=== PATIENT | female | born 1960 | race Two or more races ===

== ENCOUNTER 2018-10-10 14:10 | Inpatient (IN) | payer MEDICARE, MEDICAID ==
[~2018-10-10] VITALS: Ht 167.6 cm; Wt 120.7 kg
[~2018-10-10 14:10] MED LIST: [UNRECOGNIZED DRUG - OTHER] SQ SCH
--- NOTE | 2018-10-10 14:16 | NUR ---
PT [facility], C/O +N/V x 3 DAYS, PT IS AWAKE AND ALERT, ON MECH VENT VIA TRACH, HOOKED TO MONITOR, KEPT RESTED AND COMFORTABLE, WILL CONTINUE TO MONITOR.
--- NOTE | 2018-10-10 14:41 | NUR ---
AWAITING ER MD FOR EVAL.
[2018-10-10] MEDS ORDERED: TYL2T GT (14:54)
[2018-10-10] MEDS ORDERED: PROT946L GT (14:54)
[2018-10-10] MEDS ORDERED: NA P133E RC (14:54)
[2018-10-10] MEDS ORDERED: MAGN400O6 GT (14:54)
[2018-10-10] MEDS ORDERED: MECL12.582 GT (14:54)
[2018-10-10] MEDS ORDERED: PANT40TA4 GT (14:54)
[2018-10-10] MEDS ORDERED: LEVA0.6320 NEB (14:54)
[2018-10-10] MEDS ORDERED: LACT1CAP61 PO (14:54)
[2018-10-10] MEDS ORDERED: INSU100V10 SQ (14:54)
[2018-10-10] MEDS ORDERED: METO-295 PO (14:54)
[2018-10-10] MEDS ORDERED: ASCO500C18 GT (14:54)
[2018-10-10] MEDS ORDERED: DARB60DI SQ (14:54)
[2018-10-10] MEDS ORDERED: ATOR40TA GT (14:54)
[2018-10-10] MEDS ORDERED: ASPI-605 GT (14:54)
[2018-10-10] MEDS ORDERED: MIDO10TA GT (14:54)
[2018-10-10] MEDS ORDERED: FOLI0.8T23 PO (14:54)
[2018-10-10] MEDS ORDERED: HYDR-3972 GT (14:54)
[2018-10-10] MEDS ORDERED: INSU100C4 SQ (14:54)
[2018-10-10] MEDS ORDERED: ONDA4TAB5 GT (14:54)
[2018-10-10] MEDS ORDERED: ONDANSETRON HCL/PF 4 MG/2 ML VIAL IVP ONE (15:00)
[2018-10-10] MEDS ORDERED: IV NS 0.9% 1,000 ML BAG IV ONE (15:00)
[2018-10-10] MEDS ORDERED: HYDROMORPHONE INJ 2 MG/ML DISP.SYRIN IV ONE (15:00)
[2018-10-10] MEDS ORDERED: ONDANSETRON HCL/PF 4 MG/2 ML VIAL ONE (15:06)
[2018-10-10] MEDS ORDERED: HYDROMORPHONE 1 MG/1 ML DISP.SYRIN ONE (15:07)
--- NOTE | 2018-10-10 15:16 | NUR ---
ALMOND PASTE MIXER AT BEDSIDE FOR XRAY.
[2018-10-10 15:40] LABS: CALCIUM, SERUM 9.3 mg/dL (8.5-10.1); CARBON DIOXIDE 26 mmol/L (21-32); CHLORIDE 92 mmol/L (98-107); CREATININE 3.7 mg/dL (0.6-1.3); GLUCOSE 239 mg/dL (74-106); SODIUM SERUM 127 mmol/L (136-145); UREA NITROGEN, BLOOD 51 mg/dL (7-18)
[2018-10-10 15:43] LABS: BASOPHILS # (AUTO) 0.2 /CMM (0.0-0.2); BASOPHILS % (AUTO) 1.2 % (0.0-2.0); EOSINOPHILS % (AUTO) 2.3 % (0.0-6.0); HEMATOCRIT 29 % (33-45); HEMOGLOBIN 9.7 g/dL (11.5-14.8); LYMPHOCYTES # (AUTO) 2.3 /CMM (0.8-4.8); MEAN CORPUSCULAR HGB CONC 33 g/dl (31.0-36.0); MEAN CORPUSCULAR VOLUME 87 fL (82-100); MONOCYTES # (AUTO) 0.7 /CMM (0.1-1.30); MONOCYTES % (AUTO) 5.7 % (2.0-12.0); NEUTROPHILS # (AUTO) 9.2 /CMM (1.8-8.9); NEUTROPHILS % (AUTO) 72.8 % (43.0-81.0); PLATELET COUNT (AUTO) 401 /CMM (150-450); RED BLOOD CELL COUNT(AUTO) 3.38 MIL/uL (4.0-5.2); WHITE BLOOD COUNT (AUTO) 12.7 K/uL (4.3-11.0)
--- NOTE | 2018-10-10 15:44 | NUR ---
ROOM 119 TELE DX ESRD, UTI ACCEPTING [facility] Addendum: 10/10/18 at 1545 by DIONE [facility]EPTING [facility]
[2018-10-10 15:46] LABS: ALANINE AMINOTRANSFERASE 20 U/L (12-78); ALBUMIN 2.6 g/dL (3.4-5.0); ALKALINE PHOSPHATASE 213 U/L (46-116); ASPARTATE AMINOTRANSFERASE 16 U/L (15-37); BILIRUBIN,DIRECT 0.1 mg/dL (0.0-0.2); BILIRUBIN,TOTAL 0.4 mg/dL (0.2-1.0); LIPASE 89 U/L (73-393); TOTAL PROTEIN, SERUM 7.3 g/dL (6.4-8.2)
[2018-10-10] MEDS ORDERED: PIPERACILLIN /TAZOBACTAM 3.375 G in IV D5W 50 ML IV ONE (16:00)
[2018-10-10 16:01] LABS: APPEARANCE,URINE Turbid (CLEAR); BILIRUBIN,URINE SMALL (NEGATIVE); BLOOD, URINE Large Ery/uL (NEGATIVE); COLOR,URINE Brown (YELLOW); KETONES,URINE Negative (NEGATIVE); LEUKOCYTE ESTERASE ,URINE Large (NEGATIVE); NITRITE, URINE Negative (NEGATIVE); PROTEIN,URINE >=300 mg/dl (NEGATIVE); UGLUCOSE Negative (NEGATIVE); UROBILINOGEN,URINE 0.2 EU/dL (0.2)
[2018-10-10] MEDS ORDERED: PIPERACILLIN /TAZOBACTAM 3.375 G VIAL IV ONE (16:03)
[2018-10-10] MEDS ORDERED: POTASSIUM CL. PREMIX PERIPHER. 200 ML ONE (16:08)
[2018-10-10 16:25] LABS: RBC,URINE 21-50 /HPF (0-2)
[2018-10-10 16:26] LABS: BACTERIA,URINE Many /HPF (None Seen); SQUAMOUS EPITHELIAL CELL,UR Many /HPF (None Seen); WBC,URINE TOO NUMEROUS TO COUN /HPF (0-3)
--- NOTE | 2018-10-10 17:20 | NUR ---
RECEIVED TELEPHONE ORDER FROM .
[2018-10-10] MEDS: POTASSIUM CL. PREMIX PERIPHER. 50 ML IV SCH ×4 (17:26→21:00)
--- NOTE | 2018-10-10 17:50 | NUR ---
REPORT GIVEN TO JOANNE CLINTON FOR RAJAT.
[2018-10-10 18:04] VITALS: BP 159/79
--- NOTE | 2018-10-10 18:04 | NUR ---
TELE1/PSYCHOLOGICAL STRESS EVALUATOR TO TELE1 - ROOM 119#2 PT ARRIVED VIA GURNEY ACCOMPANIED BY ER NURSE AND TRANSPORT PERSONNEL. TRANSFERRED TO HOSPITAL BED. PT A/O X 3, ABLE TO MOUTH WORDS IN LITHUANIAN, UNDERSTANDS LITTLE TURKISH. PT IS TRACHED ON C-PAP RATES SET PRESCRIBED. PT ARRIVED WITH ON GOING IV INFUSION OF POTASSIUM (1 OF 4 BAGS ER ORDER). TELE BOX PLACED, SINUS RHYTHM. PT HAS PICC LINE WITH 2 PORTS, PATENT AND AN AV SHUNT ON LEFT UPPER ARM. G-TUBE INTACT, FLUSHED. PT ADMITTED FOR UTI, UNDER THE CARE OF DR. MAJOR. AWAITING FOR ADMITTING ORDERS. VITAL SIGNS TAKEN. PT ORIENTED TO HER SURROUNDINGS. CL WITHIN REACHED AND SAFETY MAINTAINED. ON GOING MONITORING.
[2018-10-10] MEDS ORDERED: MAGNESIUM HYDROXIDE 30 ML UDC GT PRN (18:30)
[2018-10-10] MEDS ORDERED: NA PHOS,M-B/NA PHOS,DI-BA 1 EA ENEMA RC PRN (18:30)
[2018-10-10] MEDS ORDERED: DEXTROSE 50%-WATER 50 ML DISP.SYRIN IV PRN (19:00)
--- NOTE | 2018-10-10 19:00 | NUR ---
TELE1/RN AM SHIFT END NOTES PT ENDORSED TO PM NURSE TO COMPLETE ADMISSION PROCESS AND TO CONTINUE CARE.
--- NOTE | 2018-10-10 19:10 | NUR ---
SENIOR APPLICATION SECURITY CONSULTANT NOTE PATIENT IN BED A/O X 2-3. PATIENT ABLE TO BE ORIENTED. PATIENT IS MARSHALLESE SPEAKING AND ABLE TO VOLCALIZE NEEDS. PATIENT CURRENTLY HAS POTASSIUM BEING REPLACED IV NO C/O DISCOMFORT.YOLANDA PICC PATENT INTACT NO S/S OF INFECTION AND INFILTRATION. PATIENT IS SR ON THE MONITOR. PATIENT C/O ABD PAIN 01/16. NORCO GIVEN PRN PER MD ORDER. HAS GTUBE IN TACT. RN WILL CONTINUE TO MONITOR AND PROVIDE CARE ORDERED.
[2018-10-10] MEDS: ALBUTEROL FS 2.5 MG/0.5 ML VIAL.NEB NEB SCH (19:23)
[2018-10-10] MEDS: MECLIZINE HCL 25 MG TABLET PO PRN (19:28)
[2018-10-10] MEDS: HYDROCODONE/APAP 5/325MG 1 EACH TABLET GT PRN (19:40)
[2018-10-10 20:00] VITALS: BP 144/74
[2018-10-10] MEDS: NEPRO 1,000 ML BOTTLE GT PRN (21:04)
[2018-10-10] MEDS: ATORVASTATIN 40 MG TABLET GT SCH (22:59)
[2018-10-10] MEDS: INSULIN GLARGINE, 100 UNIT/ML CARTRIDGE SQ SCH (23:01)
[2018-10-10] MEDS: BLOOD SUGAR DIAGNOSTIC 1 EACH STRIP IN SCH (23:03)
[2018-10-10] MEDS: METOCLOPRAMIDE HCL 10 MG TABLET PO SCH (23:04)
[2018-10-10] MEDS: INSULIN REGULAR, HUMAN 100 UNIT/ML 3 ML VIAL SQ PRN (23:27)
[2018-10-11] VITALS (7 sets, daily range): BP systolic 92–149; BP diastolic 45–78
[2018-10-11] MEDS ORDERED: INSULIN ASPART/LISPRO 100 UNIT/ML CARTRIDGE SQ PRN
--- NOTE | 2018-10-11 00:45 | NUR ---
LANDING GEAR MECHANIC NOTE PATIENT CONTINUE TO C/O OF ABDOMINAL PAIN 01/16 UNRELIEVED BY NORCO. NOTIFIED MD MYRIAM MD ORDERED DILAUDID 0.5 MG Q 6 PRN FOR PAIN/ CT OF ABDOMEN AND PELVIS W/O CONTRAST.. PATIENT PLACED ON NPO FOR PROCEDURE. DILAUDID GIVEN, PAIN REDUCED TO 2.
[2018-10-11] MEDS: HYDROMORPHONE 1 MG/1 ML DISP.SYRIN IV PRN ×4 (01:38→21:33)
[2018-10-11] MEDS: ONDANSETRON 4 MG TAB.RAPDIS GT PRN ×2 (01:41→09:33)
[2018-10-11] MEDS ORDERED: ZOSYN IVPB 3.375 G in IV D5W 50ml IV SCH (04:00)
[2018-10-11] MEDS: HYDROCODONE/APAP 5/325MG 1 EACH TABLET GT PRN ×2 (04:09→11:30)
[2018-10-11] MEDS: METOCLOPRAMIDE HCL 10 MG TABLET PO SCH ×3 (05:46→17:14)
[2018-10-11] MEDS: BLOOD SUGAR DIAGNOSTIC 1 EACH STRIP IN SCH ×3 (05:47→18:02)
[2018-10-11] MEDS: INSULIN REGULAR, HUMAN 100 UNIT/ML 3 ML VIAL SQ PRN ×2 (06:41→12:11)
[2018-10-11 06:49] LABS: BASOPHILS % (AUTO) 0.1 % (0.0-2.0); EOSINOPHILS % (AUTO) 3.7 % (0.0-6.0); HEMATOCRIT 27 % (33-45); HEMOGLOBIN 9.2 g/dL (11.5-14.8); LYMPHOCYTES # (AUTO) 1.5 /CMM (0.8-4.8); LYMPHOCYTES % (AUTO) 14.6 % (20.0-44.0); MEAN CORPUSCULAR HGB CONC 34 g/dl (31.0-36.0); MEAN CORPUSCULAR VOLUME 86 fL (82-100); MONOCYTES # (AUTO) 0.5 /CMM (0.1-1.30); MONOCYTES % (AUTO) 4.9 % (2.0-12.0); NEUTROPHILS # (AUTO) 7.8 /CMM (1.8-8.9); NEUTROPHILS % (AUTO) 76.7 % (43.0-81.0); PLATELET COUNT (AUTO) 433 /CMM (150-450); RED BLOOD CELL COUNT(AUTO) 3.18 MIL/uL (4.0-5.2); WHITE BLOOD COUNT (AUTO) 10.2 K/uL (4.3-11.0)
--- NOTE | 2018-10-11 06:56 | NUR ---
TIMBER ROBBER NOTE PATIENT TOLERATED THE NIGHT, ENDORSED POC TO AM FOR RAAJT. ALL CARE RENDERED ORDERED SAFETY PRECAUTIONS IN PLACE.
--- NOTE | 2018-10-11 07:00 | NUR ---
RN AM SHIFT NOTE PATIENT ALERT ORITNED X3. ON CPAP IV PATENT AND INTACT. NPO FOR PROCEDURE. PAIN MEDICATION GIVEN PER MD ORDER. PATIENT REFUSED OFF LOADING OF HEELS AND PATIENT REFUSED DVT PUMPS.
[2018-10-11 07:04] LABS: CALCIUM, SERUM 8.8 mg/dL (8.5-10.1); POTASSIUM 3.6 mmol/L (3.5-5.1)
[2018-10-11] MEDS: ALBUTEROL FS 2.5 MG/0.5 ML VIAL.NEB NEB SCH ×2 (07:50→20:11)
[2018-10-11] MEDS: ASPIRIN 81 MG TAB.CHEW GT SCH (08:48)
[2018-10-11] MEDS: VIT B CMPLX 3/FA/VIT C/BIOTIN 1 TAB TABLET PO SCH (08:48)
[2018-10-11] MEDS: ASCORBIC ACID 500 MG TABLET GT SCH (08:48)
[2018-10-11] MEDS: LACTOBACILLUS RHAMNOSUS GG 1 EACH CAP.SPRINK PO SCH ×2 (08:48→17:14)
[2018-10-11] MEDS: MIDODRINE HCL (5MG) 5 MG TABLET PO SCH ×3 (08:56→17:14)
[2018-10-11] MEDS ORDERED: PANTOPRAZOLE 40 MG/PACK PACK NG SCH (09:00)
[2018-10-11] MEDS: PROSOURCE / PROSTAT (PYXIS) 30 ML UDC GT SCH ×3 (09:00→17:14)
[2018-10-11] MEDS: HEPARIN SODIUM, PORCINE 5000 UNITS/1 ML VIAL SQ SCH ×2 (09:19→21:35)
[2018-10-11] MEDS ORDERED: PANTOPRAZOLE 40 MG/PACK PACK GT SCH (09:39)
[2018-10-11] MEDS ORDERED: EPOETIN ALFA (10,000 UNIT) 10,000 UNIT/ML VIAL IV ONE (12:00)
[2018-10-11] MEDS: FAMOTIDINE/PF INJ 20 MG/2 ML VIAL IV SCH ×2 (13:00→17:14)
[2018-10-11] MEDS: PIPERACILLIN /TAZOBACTAM 3.375 G in IV D5W 100 ML IV SCH (13:59)
[2018-10-11 16:12] LABS: ABG BASE EXCESS 0.4 mmol/L; ABG PCO2 48.7 mmHg (35.0-45.0); ABG PH 7.351 (7.350-7.450); ABG PO2 132.5 mmHg (75.0-100.0); AaDO2 96.7 mmHg; COHb 0.7 % (0.5-1.5); MetHb 0.4 % (0.0-1.5); O2Hb 96.9 % (94.0-97.0); SITE, ABG Right Radial; VENT MODE, BG CPAP 5 PS 14 40%
--- NOTE | 2018-10-11 16:30 | NUR ---
RN NOTE PATIENT WAS TAKEN FOR CT OF ABDOMEN TODAY. TUBE FEEDING CONTINUED AFTER PROCEDURE WAS DONE. PATIENT ALERT ORITNED, AND COMPLAINING OF ABDOMINAL PAIN. TOLERATING MEDICATION WELL. DIALYSIS ARRIVED THIS EVENING PATIENT SIGNED CONSENT FOR PROCEDURE. SIDE RAILS UP CONTINUE TO [facility].
--- NOTE | 2018-10-11 19:10 | NUR ---
AESTHETICS INSTRUCTOR NOTE PATIENT REPORT GIVEN BEDSIDE. PATIENT JUST COMPLETED DIALYSIS. 700 ML REMOVED. PATIENT BP STABLE, NO S/S OF HYPOTENSION. PATIENT DENIES PAIN AT THIS TIME. PATIENT TOLERATING CPAP SETTINGS WELL. SATURATION 100%. NO S/S OF RESPIRATORY DISTRESS. PATIENT DENIES CHEST PAIN AT THIS TIME. PATIENT SR ON THE MONITOR. POC DISCUSSED WITH PATIENT, RN WILL CONTINUE TO MONITOR FOR CHANGES. SAFETY PRECAUTIONS IN PLACE CALL LIGHT IN HAND.
[2018-10-11] MEDS: PANTOPRAZOLE 40 MG/PACK PACK GT SCH (21:33)
[2018-10-11] MEDS: ATORVASTATIN 40 MG TABLET GT SCH (21:35)
[2018-10-11] MEDS: INSULIN GLARGINE, 100 UNIT/ML CARTRIDGE SQ SCH (21:47)
[2018-10-12] VITALS: BP 131/71
[2018-10-12] MEDS: BLOOD SUGAR DIAGNOSTIC 1 EACH STRIP IN SCH ×5 (00:53→23:23)
[2018-10-12] MEDS: MIDODRINE HCL (5MG) 5 MG TABLET PO SCH ×5 (01:00→23:25)
[2018-10-12] MEDS: METOCLOPRAMIDE HCL 10 MG TABLET PO SCH ×5 (01:01→23:24)
[2018-10-12] MEDS: INSULIN REGULAR, HUMAN 100 UNIT/ML 3 ML VIAL SQ PRN ×5 (01:06→23:08)
[2018-10-12] MEDS: PIPERACILLIN /TAZOBACTAM 3.375 G in IV D5W 100 ML IV SCH (01:06)
--- NOTE | 2018-10-12 03:30 | NUR ---
COOK SPECIALTY NOTE NEW WOUNDS NOTED DURING PATIENT BATH. R HEEL REDNESS UNBLANCHABLE NOTED, PERIANAL WOUND, INGUINAL FOLD MASD NOTED. WPUND CONSULT PRESENT. EDUCATED PATIENT ABOUT IMPORTANCE OF OFFLOADING HEELS TO PREVENT FURTHER DAMAGE. PATIENT REFUSES TO HAVE ANYTHING BY HER FEET DESPITE EDUCATION. PATIENT EDUCATED ON CONSEQUENCES OF DTI AND POSSIBLE INCREASED RISKS D/T DM/ DIALYSIS. PATIENT VERBALIZES UNDERSTANDING. RN WILL CONTINUE TO ENCOURAGE OFFLOADING.
[2018-10-12 04:00] VITALS: BP 166/83
[2018-10-12] MEDS: HYDROMORPHONE 1 MG/1 ML DISP.SYRIN IV PRN ×4 (04:08→23:23)
[2018-10-12] MEDS: NEPRO 1,000 ML BOTTLE GT PRN ×2 (04:09→23:31)
--- NOTE | 2018-10-12 05:05 | NUR ---
RT NOTED PT REC'D TRACHED ON MECH VENT ON CPAP MODE. NO RESP DISTRESS OR SOB NOTED. PT AWAKE AND ALERT. TRACH IS PATENT AND SECURED. SX'D FOR THICK MOD AMT OF PALE YELLOW SECRETIONS. ALARMS ARE SET AND AUDIBLE. VENT PLUGGED INTO RED OUTLET. AMBU BAG BEDSIDE. WILL CONTINUE TO MONITOR. Addendum: 10/12/18 at 0506 by MILVIA LUGO RT Amended: Links added.
[2018-10-12] MEDS ORDERED: Z GUARD REMEDY 2 OZ OINT TP PRN (06:30)
--- NOTE | 2018-10-12 06:30 | NUR ---
WOUND CARE CONSULT WOUND CARE RECEIVED CONSULT FOR L HEEL WOUND, MASD INGUINAL FOLD AND PERIANAL WOUND. WOUND CARE WILL DEFER CONSULT AND TREATMENT PLANS TO PLASTIC SURGICAL TEAM WELL DPM DR HURTADO WHO ARE CURRENTLY FOLLOWING THIS PATIENT. PATIENT WITH LEE AT 13, ALL PRESSURE ULCER PREVENTION MEASURES ARE NOTED TO BE IN PLACE AT THIS TIME. WILL SEE PRN.
[2018-10-12] MEDS: ALBUTEROL FS 2.5 MG/0.5 ML VIAL.NEB NEB SCH ×2 (07:09→19:52)
--- NOTE | 2018-10-12 07:37 | NUR ---
OIL BURNER SERVICER AND INSTALLER NOTE PATIENT TOLERATED THE NIGHT WELL NO S/S OF DISTRESS AT THIS TIME. CARE GIVEN ORDERED. POC ENDORSED TO AM FOR RAJAT.
[2018-10-12 08:00] VITALS: BP 151/67
--- NOTE | 2018-10-12 08:10 | NUR ---
BIOMEDICAL EQUIPMENT TECHNICIAN OPENING NOTE RECEIVED REPORT FROM ARLETH RUBIO.PATIENT IN BED A/O X 2-3. PATIENT ABLE TO MOUTH WORDS. PATIENT IS RUSSIAN SPEAKING UNDERSTAND TAJIK.YOLANDA PICC PATENT INTACT NO S/S OF INFECTION AND INFILTRATION. PATIENT IS SR ON THE MONITOR. GTUBE IN TACT AND FEEDING ONGOING.BED IS LOW AND IN LOCKED POSITION.CALL LIGHT IN REACH.BED ALARM ON.SRX3.WILL CONTINUE TO MONITOR.
[2018-10-12] MEDS: FAMOTIDINE/PF INJ 20 MG/2 ML VIAL IV SCH ×2 (08:46→16:45)
[2018-10-12] MEDS: PANTOPRAZOLE 40 MG/PACK PACK GT SCH ×2 (08:46→22:52)
[2018-10-12] MEDS: ASCORBIC ACID 500 MG TABLET GT SCH (08:46)
[2018-10-12] MEDS: PROSOURCE / PROSTAT (PYXIS) 30 ML UDC GT SCH ×3 (08:46→16:46)
[2018-10-12] MEDS: LACTOBACILLUS RHAMNOSUS GG 1 EACH CAP.SPRINK PO SCH ×2 (08:46→16:44)
[2018-10-12] MEDS: ASPIRIN 81 MG TAB.CHEW GT SCH (08:46)
[2018-10-12] MEDS: VIT B CMPLX 3/FA/VIT C/BIOTIN 1 TAB TABLET PO SCH (08:46)
[2018-10-12] MEDS: HEPARIN SODIUM, PORCINE 5000 UNITS/1 ML VIAL SQ SCH ×2 (09:03→22:53)
[2018-10-12] MEDS: Z GUARD REMEDY 2 OZ OINT TP SCH (09:27)
[2018-10-12 12:00] VITALS: BP 130/56
--- NOTE | 2018-10-12 13:00 | NUR ---
BUS ASSISTANT NOTE MIDODRINE IS NOT ADMINISTERED ON NOON TIME BECAUSE OF BP 130/56.
[2018-10-12] MEDS: PIPERACILLIN /TAZOBACTAM 2.25 G in IV D5W 50 ML IV SCH ×2 (13:43→21:08)
[2018-10-12] MEDS ORDERED: Z GUARD REMEDY 2 OZ OINT TP SCH (15:00)
[2018-10-12 16:00] VITALS: BP 130/62
--- NOTE | 2018-10-12 16:16 | NUR ---
QUEEN'S COUNSEL NOTE SEEN BY WOUND CARE PHYSICIAN CODING SPECIALIST AUNG.GOT NEW ORDERS.PATIENT REFUSED CLEANING.STATED SHE GOT CLEANED UP IN THE MORNING.REFUSED OFF LOADING HEELS.EXPLAINED RISK AND BENEFIT .STILL REFUSING.KARTHIK HORAN MADE AWARE.
[2018-10-12] MEDS: CLOTRIMAZOLE 1% 15 GM TUBE TP SCH ×2 (16:47→17:00)
[2018-10-12] MEDS: ONDANSETRON 4 MG TAB.RAPDIS GT PRN (17:44)
--- NOTE | 2018-10-12 19:32 | NUR ---
JOURNEYMAN OPERATOR ASSISTANT CLOSING NOTE PATIENT IN BED A/O X 2-3. PATIENT ABLE TO MOUTH WORDS. PATIENT IS ALGERIAN SPEAKING UNDERSTAND [place]O R[place].YOLANDA PICC PATENT INTACT NO S/S OF INFECTION AND INFILTRATION. PATIENT IS SR ON THE MONITOR. GTUBE IN TACT AND FEEDING ONGOING.BED IS LOW AND IN LOCKED POSITION.CALL LIGHT IN REACH.BED ALARM ON.SRX3.ONGOING HEMODIALYSIS.SPOKE TO AND GOT CONSENT FOR SACRAL/COCCYX WOUND DEBRIDEMENT.OK TO DO PROCEDURE PER PATIENT TOO.DIETARY RECOMMENDATION ENDORSED TO PM NURSE FOR RAJAT AND F/U WITH DOCTOR TOMORROW.
[2018-10-12 20:00] VITALS: BP_SYST 134; BP_SYST 139; BP_DIAS 67; BP_DIAS 82
[2018-10-12] MEDS: HYDROCODONE/APAP 5/325MG 1 EACH TABLET GT PRN (21:25)
[2018-10-12] MEDS: ATORVASTATIN 40 MG TABLET GT SCH (22:52)
[2018-10-12] MEDS: INSULIN GLARGINE, 100 UNIT/ML CARTRIDGE SQ SCH (23:03)
[2018-10-13] VITALS (8 sets, daily range): BP systolic 129–159; BP diastolic 70–86
--- NOTE | 2018-10-13 00:54 | NUR ---
TELE/RN PATIENT IS SLEEPING AT THIS TIME, EASILY AROUSABLE, APPEAR COMFORTABLE, NO SIGNS OF DISTRESS NOTED, CALL LIGHT IN REACH, WILL CONTINUE TO MONITOR.
--- NOTE | 2018-10-13 02:39 | NUR ---
RT NOTE PT RCVD TRACH'D ON MECHANICAL VENT WITH CHARTED SETTINGS. PT TARAS TX WELL. SX DONE. PT TRACH IS PATENT AND SECURE. VENT IS PLUGGED INTO RED OUTLET. ALARMS ARE ON AND AUDIBLE. AMBU BAG AT BEDSIDE. WILL CONTINUE TO MONITOR. Addendum: 10/13/18 at 0240 by ROSE MIKE RT Amended: Links added.
[2018-10-13] MEDS: PIPERACILLIN /TAZOBACTAM 2.25 G in IV D5W 50 ML IV SCH ×3 (05:21→21:11)
[2018-10-13] MEDS: METOCLOPRAMIDE HCL 10 MG TABLET PO SCH ×3 (05:22→17:00)
[2018-10-13] MEDS: HYDROMORPHONE 1 MG/1 ML DISP.SYRIN IV PRN ×3 (05:23→17:33)
[2018-10-13] MEDS: INSULIN REGULAR, HUMAN 100 UNIT/ML 3 ML VIAL SQ PRN ×4 (05:36→23:48)
[2018-10-13] MEDS: BLOOD SUGAR DIAGNOSTIC 1 EACH STRIP IN SCH ×4 (05:40→23:47)
[2018-10-13] MEDS: MIDODRINE HCL (5MG) 5 MG TABLET PO SCH ×3 (06:00→17:00)
[2018-10-13 06:35] LABS: BASOPHILS % (AUTO) 0.3 % (0.0-2.0); EOSINOPHILS % (AUTO) 2.8 % (0.0-6.0); HEMATOCRIT 26 % (33-45); HEMOGLOBIN 8.6 g/dL (11.5-14.8); LYMPHOCYTES # (AUTO) 1.6 /CMM (0.8-4.8); LYMPHOCYTES % (AUTO) 13.2 % (20.0-44.0); MEAN CORPUSCULAR HGB CONC 33 g/dl (31.0-36.0); MEAN CORPUSCULAR VOLUME 87 fL (82-100); MONOCYTES # (AUTO) 0.8 /CMM (0.1-1.30); NEUTROPHILS % (AUTO) 76.7 % (43.0-81.0); PLATELET COUNT (AUTO) 410 /CMM (150-450); RED BLOOD CELL COUNT(AUTO) 3.01 MIL/uL (4.0-5.2); WHITE BLOOD COUNT (AUTO) 11.8 K/uL (4.3-11.0)
--- NOTE | 2018-10-13 06:43 | NUR ---
TELE/RN PATIENT IS SLEEPING, AROUSABLE, APPEAR COMFORTABLE, VENT WORKING, NO SIGNS OF DISTRESS NOTED, HOB ELEVATED, GT FEEDING INFUSING, NO RESIDUAL NOTED, ALL NEEDS ATTENDED AT THIS TIME, WILL CONTINUE TO MONITOR.
[2018-10-13 06:57] LABS: CALCIUM, SERUM 8.8 mg/dL (8.5-10.1); CREATININE 2.5 mg/dL (0.6-1.3); MAGNESIUM 2.5 mg/dL (1.8-2.4); PHOSPHORUS 1.2 mg/dL (2.5-4.9); POTASSIUM 3.2 mmol/L (3.5-5.1)
--- NOTE | 2018-10-13 07:10 | NUR ---
RN OPENING NOTES PATIENT IN BED, AWAKE AND ALERT. NOC SHIFT KNOCKER OUT CLEANING THE PATIENT AT THIS TIME. PATIENT ON VENT, ON CPAP MODE AND CUFF DEFLATED, ABLE TO TALK AND COMMUNICATE. HAS YOLANDA PICC AND RAMIN AV SHUNT. ON TELE MONITOR, SR. ON GTF NEPRO AT 60 ML/HR. HAS A SCHEDULED DEBRIDEMENT TODAY, CONSENT SIGNED IN CHART. BED LOCKED AND IN LOWEST POSITION. CALL LIGHT WITHIN REACH. WILL CONTINUE TO MONITOR CLOSELY
[2018-10-13] MEDS: ALBUTEROL FS 2.5 MG/0.5 ML VIAL.NEB NEB SCH ×2 (07:25→19:59)
[2018-10-13] MEDS: PANTOPRAZOLE 40 MG/PACK PACK GT SCH ×2 (09:09→21:11)
[2018-10-13] MEDS: FAMOTIDINE/PF INJ 20 MG/2 ML VIAL IV SCH ×2 (09:09→16:57)
[2018-10-13] MEDS: LACTOBACILLUS RHAMNOSUS GG 1 EACH CAP.SPRINK PO SCH ×2 (09:09→16:57)
[2018-10-13] MEDS: ASPIRIN 81 MG TAB.CHEW GT SCH (09:09)
[2018-10-13] MEDS: VIT B CMPLX 3/FA/VIT C/BIOTIN 1 TAB TABLET PO SCH (09:09)
[2018-10-13] MEDS: ASCORBIC ACID 500 MG TABLET GT SCH (09:09)
[2018-10-13] MEDS: HEPARIN SODIUM, PORCINE 5000 UNITS/1 ML VIAL SQ SCH ×2 (09:10→21:14)
[2018-10-13] MEDS: PROSOURCE / PROSTAT (PYXIS) 30 ML UDC GT SCH ×3 (09:10→16:55)
[2018-10-13] MEDS: CLOTRIMAZOLE 1% 15 GM TUBE TP SCH ×2 (09:20→17:03)
[2018-10-13] MEDS: HYDROGEL DRESSING 90 GM TUBE TP SCH (09:20)
[2018-10-13] MEDS: Z GUARD REMEDY 2 OZ OINT TP SCH (09:21)
--- NOTE | 2018-10-13 09:53 | NUR ---
WOUND CARE CONSULT WOUND CARE RECEIVED CONSULT FOR MASD INGUINAL FOLDS, PERIANAL WOUND AND LEFT HEEL INJURY. WOUND CARE WILL DEFER CONSULT AND ALL TREATMENT PLANS TO PLASTIC SURGICAL TEAM INCLUDING DPM DR HURTADO WHO ARE ALL CURRENTLY FOLLOWING THIS PATIENT. PATIENT WITH LEE AT 13, ALL PRESSURE ULCER PREVENTION MEASURES ARE NOTED TO BE IN PLACE. WILL SEE PRN.
--- NOTE | 2018-10-13 11:30 | NUR ---
RN NOTES PATIENT ASKED FOR DILAUDID FOR 9/10 BACK PAIN
[2018-10-13] MEDS ORDERED: NEUTRA PHOS 1 POWD.PACKET GT ONE (12:30)
--- NOTE | 2018-10-13 17:30 | NUR ---
RN NOTES PATIENT ASKED FOR DILAUDID FOR 9/10 BACK PAIN
[2018-10-13] MEDS: NEPRO 1,000 ML BOTTLE GT PRN (18:16)
--- NOTE | 2018-10-13 18:55 | NUR ---
RN CLOSING NOTES PATIENT IN BED, AWAKE AND ALERT. ABLE TO TALK CUFF DEFLATED. ON VENT, CPAP MODE. PATIENT HAD 1 BM. MULTIPLE WOUNDS, HAD DEBRIDEMENT TODAY. HAS A YOLANDA PICC AND RAMIN AV SHUNT. ON GTF NEPRO AT 60 ML/HR. TOLERATED WELL, WITH 50ML RESIDUAL THIS AFTERNOON, AND 80ML THIS AM. PATIENT ASKED FOR DILAUDID AT 1130 AND 1730. NO COMPLAINS OF ANY SOB THROUGHOUT THE SHIFT, TOLERATING VENT SETTINGS WELL. ALL MEDS GIVEN. BED LOCKED AND IN LOWEST POSITION. CALL LIGHT WITHIN REACH. WILL ENDORSE TO NOC SHIFT FOR RAJAT
[2018-10-13] MEDS: ATORVASTATIN 40 MG TABLET GT SCH (21:12)
[2018-10-13] MEDS: HYDROCODONE/APAP 5/325MG 1 EACH TABLET GT PRN (21:45)
[2018-10-13] MEDS: INSULIN GLARGINE, 100 UNIT/ML CARTRIDGE SQ SCH (23:45)
[2018-10-14] VITALS (7 sets, daily range): BP systolic 138–159; BP diastolic 69–86
[2018-10-14] MEDS: METOCLOPRAMIDE HCL 10 MG TABLET PO SCH ×5 (00:23→23:34)
[2018-10-14] MEDS: HYDROMORPHONE 1 MG/1 ML DISP.SYRIN IV PRN ×2 (00:43→16:53)
[2018-10-14] MEDS: PIPERACILLIN /TAZOBACTAM 2.25 G in IV D5W 50 ML IV SCH ×3 (05:11→22:23)
[2018-10-14] MEDS: BLOOD SUGAR DIAGNOSTIC 1 EACH STRIP IN SCH ×4 (05:57→23:34)
[2018-10-14] MEDS: MIDODRINE HCL (5MG) 5 MG TABLET PO SCH ×5 (06:00→23:36)
[2018-10-14] MEDS: INSULIN REGULAR, HUMAN 100 UNIT/ML 3 ML VIAL SQ PRN ×4 (06:10→23:42)
--- NOTE | 2018-10-14 06:43 | NUR ---
RN CLOSING NETE NOTES: PATIENT IN BED, AWAKE AND ALERT. ABLE TO TALK CUFF DEFLATED. ON VENT, CPAP MODE. PATIENT HAD 1 BM. MULTIPLE WOUNDS, HAD DEBRIDEMENT TODAY. HAS A YOLANDA PICC AND RAMIN AV SHUNT. ON GTF NEPRO AT 60 ML/HR. TOLERATED WELL, NO RESIDUAL THIS AFTERNOON, AND 80ML THIS AM. PATIENT ASKED FOR DILAUDID PRN.. NO COMPLAINS OF ANY SOB THROUGHOUT THE SHIFT, TOLERATING VENT SETTINGS WELL. ALL MEDS GIVEN. BED LOCKED AND IN LOWEST POSITION. CALL LIGHT WITHIN REACH. WILL ENDORSE TO NOC AM FOR RAJAT
[2018-10-14] MEDS ORDERED: IPRATROPIUM NEB FS 0.5 MG/2.5 ML AMPUL.NEB NEB PRN (07:00)
--- NOTE | 2018-10-14 07:30 | NUR ---
RN NOTES RECEIVED PATIENT ON BED WITH BREATHING NORMAL, EVEN AND UNLABORED. NO SOB NOTED. NO ACUTE DISTRESS NOTED. AFEBRILE. TELE MONITOR REVEALS SR, HR=84. YOLANDA PICCLINE IS PATENT AND INTACT. CONT ON GT FEED,TOLERATED WELL. GT PLACEMENT POSITIVE. ASPIRATION PRECAUTION TAKEN. KEPT CLEAN, DRY AND COMFORTABLE. ALL NEEDS ATTENDED. SAFETY MEASURE OBSERVED. CALL LIGHT WITH IN REACH. WILL CONT TO MONITOR.
[2018-10-14] MEDS ORDERED: ALBUTEROL FS 2.5 MG/0.5 ML VIAL.NEB NEB PRN (07:35)
[2018-10-14] MEDS: LACTOBACILLUS RHAMNOSUS GG 1 EACH CAP.SPRINK PO SCH ×2 (08:16→16:31)
[2018-10-14] MEDS: VIT B CMPLX 3/FA/VIT C/BIOTIN 1 TAB TABLET PO SCH (08:17)
[2018-10-14] MEDS: HYDROCODONE/APAP 5/325MG 1 EACH TABLET GT PRN ×2 (08:17→16:32)
[2018-10-14] MEDS: ASCORBIC ACID 500 MG TABLET GT SCH (08:17)
[2018-10-14] MEDS: ASPIRIN 81 MG TAB.CHEW GT SCH (08:17)
[2018-10-14] MEDS: Z GUARD REMEDY 2 OZ OINT TP SCH (08:18)
[2018-10-14] MEDS: FAMOTIDINE/PF INJ 20 MG/2 ML VIAL IV SCH ×2 (08:18→16:31)
[2018-10-14] MEDS: PANTOPRAZOLE 40 MG/PACK PACK GT SCH ×2 (08:18→22:23)
[2018-10-14] MEDS: PROSOURCE / PROSTAT (PYXIS) 30 ML UDC GT SCH ×3 (08:19→16:33)
[2018-10-14] MEDS: HEPARIN SODIUM, PORCINE 5000 UNITS/1 ML VIAL SQ SCH ×2 (08:21→22:25)
[2018-10-14] MEDS: ALBUTEROL FS 2.5 MG/0.5 ML VIAL.NEB NEB SCH ×2 (08:23→19:08)
[2018-10-14] MEDS: CLOTRIMAZOLE 1% 15 GM TUBE TP SCH ×2 (08:25→16:35)
--- NOTE | 2018-10-14 15:00 | NUR ---
RN NOTES RELAYED PROCALCITONIN RESULTS TO DR RANGEL WITH NNO. WILL CONT TO MONITOR.
--- NOTE | 2018-10-14 16:38 | NUR ---
RT RECEIVED PT ON MECHANICAL VENT WITH ORDERED SETTINGS. TRACH TUBE IN PLACE, PATENT, AND SECURED WITH TRACH TIE. ALARMS ON AND AUDIBLE. VENT PLUGGED IN RED OUTLET. SMALL THICK YELLOW BLOOD TINGED SECRETIONS. AMBU BAG AND BACK UP TRACH BY THE BEDSIDE. NO SIGNS OF ANY RESP DISTRESS. Addendum: 10/14/18 at 1640 by LINDA ORLANDO RT Amended: Links added.
--- NOTE | 2018-10-14 19:30 | NUR ---
RN NOTES PATIENT ENDORSED TO NEXT SHIFT IN STABLE CONDITION FOR CONTINUITY OF CARE.
--- NOTE | 2018-10-14 20:00 | NUR ---
N OPENING NOTES PATIENT IN BED, AWAKE AND ALERT. PATIENT ON VENT, ON CPAP MODE AND CUFF DEFLATED, ABLE TO TALK AND COMMUNICATE. HAS YOLANDA PICC AND RAMIN AV SHUNT. ON TELE MONITOR, SR. ON GTF NEPRO AT 60 ML/HR. BED LOCKED AND IN LOWEST POSITION. CALL LIGHT WITHIN REACH. WILL CONTINUE TO MONITOR CLOSELY
[2018-10-14] MEDS: ATORVASTATIN 40 MG TABLET GT SCH (22:23)
[2018-10-14] MEDS: INSULIN GLARGINE, 100 UNIT/ML CARTRIDGE SQ SCH (22:31)
--- NOTE | 2018-10-14 23:35 | NUR ---
RN NOTES PT REQUESTED PAIN MEDS. 0.5 MG DILAUDID GIVEN ORDERED. PT C/O FOR PAIN 01/16.
[2018-10-15] VITALS: BP_SYST 128; BP_SYST 147; BP_DIAS 70; BP_DIAS 78
[2018-10-15 04:00] VITALS: BP 148/74
[2018-10-15] MEDS: PIPERACILLIN /TAZOBACTAM 2.25 G in IV D5W 50 ML IV SCH ×3 (06:04→20:59)
[2018-10-15] MEDS: METOCLOPRAMIDE HCL 10 MG TABLET PO SCH ×3 (06:05→17:21)
[2018-10-15] MEDS: BLOOD SUGAR DIAGNOSTIC 1 EACH STRIP IN SCH ×3 (06:05→17:21)
[2018-10-15] MEDS: MIDODRINE HCL (5MG) 5 MG TABLET PO SCH ×3 (06:05→17:21)
[2018-10-15] MEDS: INSULIN REGULAR, HUMAN 100 UNIT/ML 3 ML VIAL SQ PRN ×3 (06:22→17:23)
[2018-10-15] MEDS: HYDROMORPHONE 1 MG/1 ML DISP.SYRIN IV PRN ×3 (06:26→20:01)
--- NOTE | 2018-10-15 06:33 | NUR ---
RN NOTES PT REQUESTED PAIN MEDS. 0.5 MG DILAUDID GIVEN ORDERED. PT C/O FOR PAIN 01/16.
[2018-10-15] MEDS: ALBUTEROL FS 2.5 MG/0.5 ML VIAL.NEB NEB SCH ×2 (07:33→19:46)
--- NOTE | 2018-10-15 07:49 | NUR ---
J2EE PROGRAMMER NOTE RECEIVED PATIENT IN BED . AWAKE WITH TRACH TO VENT SETTING ORDERED , RT AT BEDSIDE , ON TELE MONITOR SR ,, WITH G TUBE FEEDING ORDERED KEEP HOB ELEVATED AT ALL TIME , LT UA AV SHUNT WITH BRUIT AND THRILL SOUND , BED IN LOWEST AND LOCKED POSITION , CALL LIGHT WITHIN REACH , WILL CONT TO MONITOR CLOSELY
[2018-10-15 08:00] VITALS: BP 158/63
--- NOTE | 2018-10-15 08:06 | NUR ---
RN CLOSING NOTES PATIENT IN BED, AWAKE AND ALERT. ABLE TO TALK CUFF DEFLATED. ON VENT, CPAP MODE. PATIENT HAD 1 BM. HAS A YOLANDA PICC AND RAMIN AV SHUNT. ON GTF NEPRO AT 60 ML/HR. TOLERATED WELL. PATIENT ASKED FOR DILAUDID AT 2300 AND 0600. NO COMPLAINS OF ANY SOB THROUGHOUT THE SHIFT, TOLERATING VENT SETTINGS WELL. ALL MEDS GIVEN. BED LOCKED AND IN LOWEST POSITION. CALL LIGHT WITHIN REACH. WILL ENDORSE TO AM RN SHIFT FOR RAJAT
[2018-10-15] MEDS: PANTOPRAZOLE 40 MG/PACK PACK GT SCH ×2 (09:05→20:59)
[2018-10-15] MEDS: ASPIRIN 81 MG TAB.CHEW GT SCH (09:05)
[2018-10-15] MEDS: HEPARIN SODIUM, PORCINE 5000 UNITS/1 ML VIAL SQ SCH ×2 (09:05→21:00)
[2018-10-15] MEDS: VIT B CMPLX 3/FA/VIT C/BIOTIN 1 TAB TABLET PO SCH (09:05)
[2018-10-15] MEDS: PROSOURCE / PROSTAT (PYXIS) 30 ML UDC GT SCH ×3 (09:05→16:19)
[2018-10-15] MEDS: LACTOBACILLUS RHAMNOSUS GG 1 EACH CAP.SPRINK PO SCH ×2 (09:05→16:20)
[2018-10-15] MEDS: CLOTRIMAZOLE 1% 15 GM TUBE TP SCH ×2 (09:06→16:21)
[2018-10-15] MEDS: ASCORBIC ACID 500 MG TABLET GT SCH (09:06)
[2018-10-15] MEDS: FAMOTIDINE/PF INJ 20 MG/2 ML VIAL IV SCH ×2 (09:06→16:20)
[2018-10-15] MEDS: Z GUARD REMEDY 2 OZ OINT TP SCH (09:07)
--- NOTE | 2018-10-15 10:38 | NUR ---
TELE TN NOTE KEEP CLEAN DRY TURN REPOSITION, SEEN BY DR RANGEL ,WILL CONT TO MONITOR
[2018-10-15] MEDS: NEPRO 1,000 ML BOTTLE GT PRN (11:33)
[2018-10-15 12:00] VITALS: BP 150/79
--- NOTE | 2018-10-15 12:46 | NUR ---
PURIFICATION SUPERVISOR NOTE C\O GENERAL PAIN ON BODY 12/16 BP158/63 [id number]%, DILAUDID 0.5 MG IVP GIVEN .WILL MONITOR CLOSELY
--- NOTE | 2018-10-15 15:00 | NUR ---
SCRAP PREPARER NOTE ALL NEEDS ATTENDED, FAMILY AT BEDSIDE ,NOT IN DISTRESS
[2018-10-15 16:00] VITALS: BP 115/85
--- NOTE | 2018-10-15 18:35 | NUR ---
PLASTIC SURGERY NURSE NOTE CONT ON G TUBE FEEDING ORDERED , ALL NEEDS ATTENDED, NO C\O PAIN OR DISCOMFORT ,FAMILY AT BEDSIDE , WITH TRACH TO VENT SETTING ORDERED
--- NOTE | 2018-10-15 19:50 | NUR ---
RN CLOSING NOTES PATIENT IN BED, AWAKE AND ALERT. ABLE TO VERBALIZE NEEDS AND CONCERNS, ON VENT, CPAP MODE, BREATHING EVEN AND UNLABORED, NO S/S OF SOB/ACUTE DISTRESS NOTED, YOLANDA MIDLINE PATENT AND INTACT, RAMIN AV SHUNT, ON GTF NEPRO AT 60 ML/HR, INFUSING WELL AND TOLERATED WELL, MINIMAL RESIDUAL AT THIS TIME, TOLERATING VENT SETTINGS WELL, HOB ELEVATED AT ALL TIMES FOR ASPIRATION PRECAUTIONS, BED LOCKED AND IN LOWEST POSITION, CALL LIGHT WITHIN REACH, FAMILY AT BEDSIDE, WILL CONTINUE TO MONITOR CLOSELY. Addendum: 10/16/18 at 0654 by SABAS COKER RN OPENING NOTES
[2018-10-15 20:00] VITALS: BP 139/74
[2018-10-15] MEDS: ATORVASTATIN 40 MG TABLET GT SCH (21:00)
[2018-10-15] MEDS: INSULIN GLARGINE, 100 UNIT/ML CARTRIDGE SQ SCH (21:01)
[2018-10-16] VITALS (7 sets, daily range): BP systolic 134–146; BP diastolic 60–89
[2018-10-16] MEDS: HYDROMORPHONE 1 MG/1 ML DISP.SYRIN IV PRN ×4 (00:38→21:29)
[2018-10-16] MEDS: METOCLOPRAMIDE HCL 10 MG TABLET PO SCH ×4 (01:35→17:05)
[2018-10-16] MEDS: BLOOD SUGAR DIAGNOSTIC 1 EACH STRIP IN SCH ×4 (01:35→17:59)
[2018-10-16] MEDS: INSULIN REGULAR, HUMAN 100 UNIT/ML 3 ML VIAL SQ PRN ×4 (01:36→18:01)
[2018-10-16] MEDS: PIPERACILLIN /TAZOBACTAM 2.25 G in IV D5W 50 ML IV SCH ×3 (04:48→20:44)
[2018-10-16] MEDS: MIDODRINE HCL (5MG) 5 MG TABLET PO SCH ×4 (05:16→17:05)
[2018-10-16] MEDS: NEPRO 1,000 ML BOTTLE GT PRN (05:48)
[2018-10-16 06:29] LABS: BASOPHILS % (AUTO) 0.3 % (0.0-2.0); EOSINOPHILS % (AUTO) 4.6 % (0.0-6.0); HEMATOCRIT 25 % (33-45); HEMOGLOBIN 8.2 g/dL (11.5-14.8); LYMPHOCYTES # (AUTO) 2.1 /CMM (0.8-4.8); LYMPHOCYTES % (AUTO) 16.9 % (20.0-44.0); MEAN CORPUSCULAR HGB CONC 33 g/dl (31.0-36.0); MEAN CORPUSCULAR VOLUME 88 fL (82-100); MONOCYTES # (AUTO) 0.7 /CMM (0.1-1.30); MONOCYTES % (AUTO) 5.8 % (2.0-12.0); NEUTROPHILS # (AUTO) 9.2 /CMM (1.8-8.9); NEUTROPHILS % (AUTO) 72.4 % (43.0-81.0); PLATELET COUNT (AUTO) 370 /CMM (150-450); RED BLOOD CELL COUNT(AUTO) 2.88 MIL/uL (4.0-5.2); WHITE BLOOD COUNT (AUTO) 12.7 K/uL (4.3-11.0)
--- NOTE | 2018-10-16 06:50 | NUR ---
RN NOTES, PATIENT IN BED AWAKE, ASLEEP BUT EASILY AROUSABLE YO TACTILE STIMULI, BREATHING EVEN AND UNLABORED, ON VENT CPAP MODE, TOLERATED SETTINGS WELL, , SR IN TELE MONITOR HR IN THE 80S, NO SIGNIFICANT CHANGE IN CONDITION LAST NIGHT, BED LOCKED AND IN LOWEST POSITION, CALL LIGHT W/I REACH, WILL CONTINUE TO MONITOR CLOSELY, C/O HEADACHE, WILL CONTINUE TO MONITOR CLOSELY.
[2018-10-16 06:51] LABS: ALBUMIN 2.3 g/dL (3.4-5.0); BILIRUBIN,TOTAL 0.3 mg/dL (0.2-1.0); CALCIUM, SERUM 8.2 mg/dL (8.5-10.1); CREATININE 3.1 mg/dL (0.6-1.3); MAGNESIUM 2.5 mg/dL (1.8-2.4); PHOSPHORUS 1.4 mg/dL (2.5-4.9); POTASSIUM 4.5 mmol/L (3.5-5.1); TOTAL PROTEIN, SERUM 6.6 g/dL (6.4-8.2)
--- NOTE | 2018-10-16 07:50 | NUR ---
RN NOTE RECEIVED PATIENT IN BED AWAKE ON VENT/TRACH WITH APPROPRIATE SETTINGS. PATIENT IS ALERT AND ORIENTED X4. PATIENT IS ABLE TO MOUTH WORDS WITH HER NEEDS. IV SITE INTACT AND PATENT. G TUBE SITE IS INTACT AND PATENT WITH ONGOING TUBE FEEDINGS ORDERED AND WELL TOLERATED. LEFT UA AV SHUNT WITH BRUIT AND THRILL PRESENT. BED LOW AND LOCK PSOTION. ALL SAFETY MEASURES DONE. WILL CONTINUE TO MONITOR
[2018-10-16] MEDS: ALBUTEROL FS 2.5 MG/0.5 ML VIAL.NEB NEB SCH ×2 (07:58→19:38)
[2018-10-16] MEDS: PROSOURCE / PROSTAT (PYXIS) 30 ML UDC GT SCH ×3 (09:11→17:05)
[2018-10-16] MEDS: VIT B CMPLX 3/FA/VIT C/BIOTIN 1 TAB TABLET PO SCH (09:11)
[2018-10-16] MEDS: PANTOPRAZOLE 40 MG/PACK PACK GT SCH ×2 (09:11→20:44)
[2018-10-16] MEDS: LACTOBACILLUS RHAMNOSUS GG 1 EACH CAP.SPRINK PO SCH ×2 (09:11→17:05)
[2018-10-16] MEDS: ASPIRIN 81 MG TAB.CHEW GT SCH (09:11)
[2018-10-16] MEDS: ASCORBIC ACID 500 MG TABLET GT SCH (09:13)
[2018-10-16] MEDS: HEPARIN SODIUM, PORCINE 5000 UNITS/1 ML VIAL SQ SCH ×2 (09:13→20:45)
[2018-10-16] MEDS: FAMOTIDINE/PF INJ 20 MG/2 ML VIAL IV SCH ×2 (09:18→17:06)
[2018-10-16] MEDS: Z GUARD REMEDY 2 OZ OINT TP SCH (09:18)
[2018-10-16] MEDS: CLOTRIMAZOLE 1% 15 GM TUBE TP SCH ×2 (09:19→17:06)
[2018-10-16] MEDS: HYDROCODONE/APAP 5/325MG 1 EACH TABLET GT PRN (13:58)
[2018-10-16] MEDS ORDERED: NEUTRA PHOS 1 POWD.PACKET NG ONE (16:30)
--- NOTE | 2018-10-16 19:04 | NUR ---
RN NOTE PATIENT REMAINED STABLE THROUGHOUT SHIFT. NO DISTRESS NOTED. WILL ENDORSE TO NEXT SHIFT TO CONTINUE CONTINUITY OF CARE.
--- NOTE | 2018-10-16 19:40 | NUR ---
RN NOTES, PATIENT IN BED AWAKE, A/O ABLE TO VERBALIZE NEEDS, NO SOB/ACUTE DISTRESS NOTED AT THIS TIME, NO C/O PAIN OR DISCOMFORT, BREATHING EVEN AND UNLABORED, ON VENT CPAP MODE, TOLERATED SETTINGS WELL, S/P HD TODAY, PATIENT STABLE WITH STABLE VS, SR IN TELE MONITOR HR IN THE 90S, DRY AND CLEAN AND WELL REPOSITIONED AT THIS TIME, BED LOCKED AND IN LOWEST POSITION, CALL LIGHT W/I REACH, WILL CONTINUE TO MONITOR CLOSELY.
[2018-10-16] MEDS: ATORVASTATIN 40 MG TABLET GT SCH (21:00)
[2018-10-16] MEDS: INSULIN GLARGINE, 100 UNIT/ML CARTRIDGE SQ SCH (21:09)
[2018-10-17] VITALS: BP 144/60
[2018-10-17] MEDS: BLOOD SUGAR DIAGNOSTIC 1 EACH STRIP IN SCH ×4 (00:37→19:51)
[2018-10-17] MEDS: METOCLOPRAMIDE HCL 10 MG TABLET PO SCH ×4 (00:38→19:51)
[2018-10-17] MEDS: INSULIN REGULAR, HUMAN 100 UNIT/ML 3 ML VIAL SQ PRN ×5 (00:41→22:01)
[2018-10-17] MEDS: HYDROMORPHONE 1 MG/1 ML DISP.SYRIN IV PRN ×3 (03:34→19:50)
[2018-10-17 04:00] VITALS: BP 138/62
[2018-10-17] MEDS: NEPRO 1,000 ML BOTTLE GT PRN (04:34)
[2018-10-17] MEDS: PIPERACILLIN /TAZOBACTAM 2.25 G in IV D5W 50 ML IV SCH ×3 (04:34→21:39)
[2018-10-17] MEDS: MIDODRINE HCL (5MG) 5 MG TABLET PO SCH ×4 (05:17→18:00)
--- NOTE | 2018-10-17 06:56 | NUR ---
RN NOTES, PATIENT IN BED SLEEPING AT THIS TIME, BUT EASILY AROUSES TO TACTILE STIMULI, NO SOB/ACUTE DISTRESS NOTED AT THIS TIME, NO C/O PAIN OR DISCOMFORT, BREATHING EVEN AND UNLABORED, ON VENT CPAP MODE, TOLERATED SETTINGS WELL, REMAIN STABLE DURING THE NIGHT, BED LOCKED AND IN LOWEST POSITION, CALL LIGHT W/I REACH, WILL ENDORSED CONTINUITY OF CARE TO ONCOMING NURSE.
[2018-10-17 07:13] LABS: BASOPHILS % (AUTO) 0.4 % (0.0-2.0); EOSINOPHILS % (AUTO) 5.2 % (0.0-6.0); HEMATOCRIT 26 % (33-45); HEMOGLOBIN 8.5 g/dL (11.5-14.8); LYMPHOCYTES # (AUTO) 1.6 /CMM (0.8-4.8); LYMPHOCYTES % (AUTO) 18.3 % (20.0-44.0); MEAN CORPUSCULAR HGB CONC 33 g/dl (31.0-36.0); MEAN CORPUSCULAR VOLUME 87 fL (82-100); MONOCYTES # (AUTO) 0.5 /CMM (0.1-1.30); MONOCYTES % (AUTO) 6.1 % (2.0-12.0); NEUTROPHILS # (AUTO) 6.3 /CMM (1.8-8.9); PLATELET COUNT (AUTO) 351 /CMM (150-450); RED BLOOD CELL COUNT(AUTO) 2.98 MIL/uL (4.0-5.2); WHITE BLOOD COUNT (AUTO) 8.9 K/uL (4.3-11.0)
[2018-10-17 07:25] LABS: ALBUMIN 2.2 g/dL (3.4-5.0); BILIRUBIN,TOTAL 0.3 mg/dL (0.2-1.0); CALCIUM, SERUM 8.1 mg/dL (8.5-10.1); CREATININE 2.8 mg/dL (0.6-1.3); MAGNESIUM 2.4 mg/dL (1.8-2.4); PHOSPHORUS 1.9 mg/dL (2.5-4.9); POTASSIUM 4.4 mmol/L (3.5-5.1); TOTAL PROTEIN, SERUM 6.4 g/dL (6.4-8.2)
[2018-10-17] MEDS: ALBUTEROL FS 2.5 MG/0.5 ML VIAL.NEB NEB SCH ×2 (07:59→18:55)
[2018-10-17 08:00] VITALS: BP 148/55
[2018-10-17] MEDS: FAMOTIDINE/PF INJ 20 MG/2 ML VIAL IV SCH ×2 (09:47→16:17)
[2018-10-17] MEDS: LACTOBACILLUS RHAMNOSUS GG 1 EACH CAP.SPRINK PO SCH ×2 (09:47→16:17)
[2018-10-17] MEDS: HYDROCODONE/APAP 5/325MG 1 EACH TABLET GT PRN ×2 (09:48→16:17)
[2018-10-17] MEDS: VIT B CMPLX 3/FA/VIT C/BIOTIN 1 TAB TABLET PO SCH (09:48)
[2018-10-17] MEDS: ASPIRIN 81 MG TAB.CHEW GT SCH (09:48)
[2018-10-17] MEDS: PANTOPRAZOLE 40 MG/PACK PACK GT SCH ×2 (09:48→21:38)
[2018-10-17] MEDS: ASCORBIC ACID 500 MG TABLET GT SCH (09:49)
[2018-10-17] MEDS: PROSOURCE / PROSTAT (PYXIS) 30 ML UDC GT SCH ×3 (09:50→16:23)
[2018-10-17] MEDS: CLOTRIMAZOLE 1% 15 GM TUBE TP SCH ×2 (09:50→16:20)
[2018-10-17] MEDS: Z GUARD REMEDY 2 OZ OINT TP SCH (09:51)
[2018-10-17] MEDS: HEPARIN SODIUM, PORCINE 5000 UNITS/1 ML VIAL SQ SCH ×2 (09:54→21:38)
[2018-10-17 12:00] VITALS: BP 137/54
[2018-10-17] MEDS ORDERED: NEUTRA PHOS 1 POWD.PACKET NG ONE (13:30)
[2018-10-17 16:00] VITALS: BP 149/68
--- NOTE | 2018-10-17 16:13 | NUR ---
INFORMED BERTHA AT PHARMACY THAT DILAUDID WAS ADMINISTERED AT 1203, WAS NOT SAVED IN EMAR.
--- NOTE | 2018-10-17 18:15 | NUR ---
PATIENT REFUSES TO SIGN CONSENT FOR SACRAL DEBRIDEMENT. WANTS TO SPEAK TO DOCTOR. WILL ENDORSE TO MARINE PILOT
[2018-10-17 20:00] VITALS: BP 114/60
--- NOTE | 2018-10-17 20:00 | NUR ---
RONNY RN NOTES, RECEIVED PATIENT BEDSIDE REPORT FROM AM RN. PATIENT IN BED AWAKE, A/O ABLE TO VERBALIZE NEEDS, NO SOB/ACUTE DISTRESS NOTED AT THIS TIME, PT C/O PAIN 12/16. BREATHING EVEN AND UNLABORED, ON VENT CPAP MODE, TOLERATED SETTINGS WELL, S/P HD TODAY, PATIENT STABLE WITH STABLE VS, SR IN TELE MONITOR , DRY AND CLEAN AND WELL REPOSITIONED AT THIS TIME, BED LOCKED AND IN LOWEST POSITION, CALL LIGHT W/I REACH, WILL CONTINUE TO MONITOR CLOSELY.
[2018-10-17] MEDS: ATORVASTATIN 40 MG TABLET GT SCH (21:39)
[2018-10-17] MEDS: INSULIN GLARGINE, 100 UNIT/ML CARTRIDGE SQ SCH (22:04)
[2018-10-18] VITALS: BP 134/65
[2018-10-18] MEDS: BLOOD SUGAR DIAGNOSTIC 1 EACH STRIP IN SCH ×5 (00:04→23:01)
[2018-10-18] MEDS: ACETAMINOPHEN 650 MG/20.3 ML UDC GT PRN ×2 (00:05→10:14)
[2018-10-18] MEDS: MIDODRINE HCL (5MG) 5 MG TABLET PO SCH ×5 (00:06→23:02)
[2018-10-18] MEDS: METOCLOPRAMIDE HCL 10 MG TABLET PO SCH ×5 (00:06→23:02)
[2018-10-18] MEDS: INSULIN REGULAR, HUMAN 100 UNIT/ML 3 ML VIAL SQ PRN ×5 (00:14→23:03)
[2018-10-18] MEDS: HYDROMORPHONE 1 MG/1 ML DISP.SYRIN IV PRN ×4 (02:00→21:27)
[2018-10-18] MEDS: NEPRO 1,000 ML BOTTLE GT PRN (03:37)
[2018-10-18] MEDS: HYDROCODONE/APAP 5/325MG 1 EACH TABLET GT PRN ×2 (03:41→23:02)
[2018-10-18 04:00] VITALS: BP 119/65
--- NOTE | 2018-10-18 05:22 | NUR ---
PATIENT RECEIVED ON TRACH TO VENT WITH SETTINGS OF CPAP 5, PS 14, 40%. SUCTIONED FOR MINIMAL, THIN, YELLOW SECRETIONS. GIVEN IN-LINE TREATMENT WITH NO ADVERSE REACTIONS. AMBU BAG AT BEDSIDE. VENT AND PULSE OXIMETER ALARMS AUDIBLE AND VISIBLE. VENT PLUGGED INTO RED OUTLET. Addendum: 10/18/18 at 0523 by JC LEAL RT Amended: Links added.
[2018-10-18] MEDS: PIPERACILLIN /TAZOBACTAM 2.25 G in IV D5W 50 ML IV SCH ×2 (06:01→12:42)
[2018-10-18 07:24] LABS: ALBUMIN 2.3 g/dL (3.4-5.0); BILIRUBIN,TOTAL 0.4 mg/dL (0.2-1.0); CALCIUM, SERUM 8.1 mg/dL (8.5-10.1); CREATININE 3.4 mg/dL (0.6-1.3); MAGNESIUM 2.6 mg/dL (1.8-2.4); PHOSPHORUS 2.4 mg/dL (2.5-4.9); POTASSIUM 4.7 mmol/L (3.5-5.1); TOTAL PROTEIN, SERUM 6.8 g/dL (6.4-8.2)
[2018-10-18 07:30] LABS: BASOPHILS # (AUTO) 0.1 /CMM (0.0-0.2); BASOPHILS % (AUTO) 0.8 % (0.0-2.0); HEMATOCRIT 26 % (33-45); HEMOGLOBIN 8.6 g/dL (11.5-14.8); LYMPHOCYTES # (AUTO) 2.3 /CMM (0.8-4.8); MEAN CORPUSCULAR HGB CONC 33 g/dl (31.0-36.0); MEAN CORPUSCULAR VOLUME 86 fL (82-100); MONOCYTES # (AUTO) 0.8 /CMM (0.1-1.30); MONOCYTES % (AUTO) 5.5 % (2.0-12.0); NEUTROPHILS # (AUTO) 10.3 /CMM (1.8-8.9); NEUTROPHILS % (AUTO) 72.7 % (43.0-81.0); PLATELET COUNT (AUTO) 365 /CMM (150-450); RED BLOOD CELL COUNT(AUTO) 3.04 MIL/uL (4.0-5.2); WHITE BLOOD COUNT (AUTO) 14.2 K/uL (4.3-11.0)
[2018-10-18] MEDS: ALBUTEROL FS 2.5 MG/0.5 ML VIAL.NEB NEB SCH ×2 (07:53→20:05)
[2018-10-18 08:00] VITALS: BP 154/55
[2018-10-18 08:30] LABS: BAND % (MANUAL) 1 % (0.0-5.0); EOSINOPHILS % (MANUAL) 5 % (0-4); LYMPHOCYTES % (MANUAL) 18 % (16-48); MONOCYTES % (MANUAL) 4 % (0-11.0); NEUTROPHILS % (MANUAL) 72 (42-76)
[2018-10-18] MEDS ORDERED: EPOETIN ALFA (10,000 UNIT) 10,000 UNIT/ML VIAL IV SCH (10:00)
[2018-10-18] MEDS: LACTOBACILLUS RHAMNOSUS GG 1 EACH CAP.SPRINK PO SCH ×2 (10:14→18:32)
[2018-10-18] MEDS: FAMOTIDINE/PF INJ 20 MG/2 ML VIAL IV SCH ×2 (10:14→18:32)
[2018-10-18] MEDS: ASPIRIN 81 MG TAB.CHEW GT SCH (10:14)
[2018-10-18] MEDS: MECLIZINE HCL 25 MG TABLET PO PRN (10:14)
[2018-10-18] MEDS: ASCORBIC ACID 500 MG TABLET GT SCH (10:15)
[2018-10-18] MEDS: Z GUARD REMEDY 2 OZ OINT TP SCH (10:17)
[2018-10-18] MEDS: HYDROGEL DRESSING 90 GM TUBE TP SCH (10:17)
[2018-10-18] MEDS: CLOTRIMAZOLE 1% 15 GM TUBE TP SCH ×2 (10:17→18:36)
[2018-10-18] MEDS: PROSOURCE / PROSTAT (PYXIS) 30 ML UDC GT SCH ×3 (10:20→18:32)
[2018-10-18] MEDS: PANTOPRAZOLE 40 MG/PACK PACK GT SCH ×2 (10:22→21:00)
[2018-10-18] MEDS: VIT B CMPLX 3/FA/VIT C/BIOTIN 1 TAB TABLET PO SCH (10:22)
[2018-10-18 12:00] VITALS: BP 142/53
[2018-10-18] MEDS ORDERED: K PHOS NEUTRAL 250 MG TABLET PO ONE (13:00)
[2018-10-18 16:00] VITALS: BP 118/58
[2018-10-18] MEDS ORDERED: VANCOMYCIN 1 GM in IV D5W 250 ML IV ONE (16:00)
[2018-10-18] MEDS ORDERED: FEE PK DOSING 1 MIN EA MC ONE (16:37)
[2018-10-18] MEDS ORDERED: VANCOMYCIN 1.5 GM in IV D5W 500 ML IV ONE (17:00)
[2018-10-18] MEDS ORDERED: VANCOMYCIN 500 MG in IV D5W 100 ML IV PRN (17:00)
[2018-10-18] MEDS ORDERED: MEROPENEM 500 MG in IV NS 0.9% 50 ML IV SCH (18:00)
--- NOTE | 2018-10-18 19:51 | NUR ---
EXECUTIVE OFFICE MANAGER NOTES RECEIVED PT ON BED. A/O X 4. MOUTH WORDS. ON MECH VENT SETTING NO RESPIRATORY DISTRESS NOTED. ON TELE MONITOR SR 100. GTUBE FEEDING NO RESIDUAL NOTED. IV ACCESS YOLANDA MIDLINE PATENT AND INTACT. HEAD OF BED ELEVATED. SIDE RAILS UP. CALL LIGHT WITHIN REACH. BED ALARM ON. WILL CONTINUE TO MONITOR PT CLOSELY.
--- NOTE | 2018-10-18 19:57 | NUR ---
Patient refused debridement. Handoff to night Nba RUBIO. Chi Greenberg RN
[2018-10-18 20:00] VITALS: BP 155/71
[2018-10-18] MEDS: ATORVASTATIN 40 MG TABLET GT SCH (21:00)
[2018-10-18] MEDS: INSULIN GLARGINE, 100 UNIT/ML CARTRIDGE SQ SCH (23:09)
[2018-10-19] VITALS: BP 125/49
[2018-10-19] MEDS: HYDROMORPHONE 1 MG/1 ML DISP.SYRIN IV PRN ×2 (03:24→10:29)
[2018-10-19 04:00] VITALS: BP 133/60
[2018-10-19] MEDS: BLOOD SUGAR DIAGNOSTIC 1 EACH STRIP IN SCH ×2 (05:24→12:07)
[2018-10-19] MEDS: MIDODRINE HCL (5MG) 5 MG TABLET PO SCH ×2 (05:24→12:00)
[2018-10-19] MEDS: INSULIN REGULAR, HUMAN 100 UNIT/ML 3 ML VIAL SQ PRN ×2 (05:24→12:10)
[2018-10-19] MEDS: METOCLOPRAMIDE HCL 10 MG TABLET PO SCH ×2 (05:25→12:07)
[2018-10-19] MEDS: HYDROCODONE/APAP 5/325MG 1 EACH TABLET GT PRN (05:25)
[2018-10-19] MEDS: MECLIZINE HCL 25 MG TABLET PO PRN (05:58)
[2018-10-19 06:31] LABS: BASOPHILS # (AUTO) 0.1 /CMM (0.0-0.2); BASOPHILS % (AUTO) 0.8 % (0.0-2.0); EOSINOPHILS % (AUTO) 3.7 % (0.0-6.0); HEMATOCRIT 28 % (33-45); LYMPHOCYTES # (AUTO) 1.9 /CMM (0.8-4.8); LYMPHOCYTES % (AUTO) 14.9 % (20.0-44.0); MEAN CORPUSCULAR HGB CONC 33 g/dl (31.0-36.0); MEAN CORPUSCULAR VOLUME 87 fL (82-100); MONOCYTES # (AUTO) 0.6 /CMM (0.1-1.30); MONOCYTES % (AUTO) 4.6 % (2.0-12.0); NEUTROPHILS # (AUTO) 9.6 /CMM (1.8-8.9); PLATELET COUNT (AUTO) 336 /CMM (150-450); RED BLOOD CELL COUNT(AUTO) 3.18 MIL/uL (4.0-5.2); WHITE BLOOD COUNT (AUTO) 12.6 K/uL (4.3-11.0)
--- NOTE | 2018-10-19 07:03 | NUR ---
TELEVISION ANCHOR NOTES NO ACUTE CHANGES NOTED DURING THE SHIFT. PROVIDED COMFORT AND SAFETY. WILL ENDORSE TO THE AM NURSE FOR CONTINUITY OF CARE.
--- NOTE | 2018-10-19 07:30 | NUR ---
RN OPENING NOTES RECEIVED PATIENT IN BED SLEEPING COMFORTABLY. EASILY AROUSABLE. PATIENT A/O X 4. ABLE TO MAKE NEEDS KNOWN. MOUTH WORDS. NO ACUTE DISTRESS AT THIS TIME. RESPIRATION EVEN AND UNLABORED. SKIN IS DRY WARM TO TOUCH. PATIENT ABLE TO TOLERATE CURRENT VENT SETTING. ON TELE MONITOR SR 98. NOTED WITH GTUBE FEEDING NO RESIDUAL NOTED. INTACT AND PATENT. IV ACCESS YOLANDA MIDLINE PATENT AND INTACT. NO S/S OF INFECTION. HOB ELEVATED AT ALL TIMES TO PREVENT ASPIRATIONS. ALL NEEDS ANTICIPATED. KEPT CLEAN AND DRY. CALL LIGHT WITHIN REACHED. BED LOCKED AND IN LOWEST POSITION. SIDE RAILS UP. BED ALARM ON. PLAN OF CARE DISCUSSED. WILL CONTINUE TO MONITOR PT CLOSELY.
[2018-10-19] MEDS: ALBUTEROL FS 2.5 MG/0.5 ML VIAL.NEB NEB SCH (07:34)
[2018-10-19 08:00] VITALS: BP 134/75
[2018-10-19] MEDS: FAMOTIDINE/PF INJ 20 MG/2 ML VIAL IV SCH (08:07)
[2018-10-19] MEDS: VIT B CMPLX 3/FA/VIT C/BIOTIN 1 TAB TABLET PO SCH (08:07)
[2018-10-19] MEDS: ASCORBIC ACID 500 MG TABLET GT SCH (08:07)
[2018-10-19] MEDS: PANTOPRAZOLE 40 MG/PACK PACK GT SCH (08:07)
[2018-10-19] MEDS: ASPIRIN 81 MG TAB.CHEW GT SCH (08:07)
[2018-10-19] MEDS: LACTOBACILLUS RHAMNOSUS GG 1 EACH CAP.SPRINK PO SCH (08:07)
[2018-10-19] MEDS: PROSOURCE / PROSTAT (PYXIS) 30 ML UDC GT SCH ×2 (08:08→13:13)
[2018-10-19] MEDS: Z GUARD REMEDY 2 OZ OINT TP SCH (08:11)
[2018-10-19] MEDS: CLOTRIMAZOLE 1% 15 GM TUBE TP SCH (08:11)
[2018-10-19] MEDS ORDERED: ALBU2.5V13 NEB (08:17)
[2018-10-19] MEDS ORDERED: VANC500F2 IV (08:17)
[2018-10-19] MEDS ORDERED: MERO500V IV (08:17)
[2018-10-19] MEDS ORDERED: RXVAN XX (08:17)
[2018-10-19] MEDS ORDERED: EPOETIN ALFA (10,000 UNIT) 10,000 UNIT/ML VIAL IV ONE (09:00)
--- NOTE | 2018-10-19 09:10 | NUR ---
RN NOTES MEDICATION EPOGEN WAS HELD. SPOKE TO PHARMACIST MEDICATION IS ONLY GIVEN DURING DIALYSIS. CURRENT HEMOGLOBIN IS 9.0. PATIENT REMAINS IN STABLE CONDITION. WILL CONTINUE TO MONITOR.
[2018-10-19 09:48] LABS: ALBUMIN 2.3 g/dL (3.4-5.0); BILIRUBIN,TOTAL 0.4 mg/dL (0.2-1.0); CREATININE 3.1 mg/dL (0.6-1.3); MAGNESIUM 2.4 mg/dL (1.8-2.4); PHOSPHORUS 2.4 mg/dL (2.5-4.9); POTASSIUM 4.5 mmol/L (3.5-5.1); TOTAL PROTEIN, SERUM 6.7 g/dL (6.4-8.2)
[2018-10-19] MEDS ORDERED: NEUTRA PHOS 1 POWD.PACKET GT ONE (11:00)
[2018-10-19 12:00] VITALS: BP 143/70
--- NOTE | 2018-10-19 12:14 | NUR ---
RN NOTES MEDICATION MIDODRINE WAS HELD DUE TO PATIENT B/P WAS 143/70. PATIENT REMAINS IN STABLE CONDITION. WILL CONTINUE TO MONITOR CLOSELY.
--- NOTE | 2018-10-19 16:04 | NUR ---
RN NOTES EMT CAME BACK TO PARKING ANALYST PATIENT DO DUE THEM NOT HAVING THE CORRECT GURNEY THE FIRST TIME AROUND. DISCHARGE PAPERS AND REPORT WAS GIVEN TO EMT AND RESPIRATORY THERAPIST. REPORT WAS ALSO GIVEN TO JOANNE BROOKS AT [facility]. PATIENT WAS PLACED ON THE GURNEY AND LEFT THE UNIT GOING TO [facility]. PATIENT LEFT THE UNIT IN STABLE CONDITION. ALL VITALS SIGNS WAS WITHIN NORMAL LIMITS.
== END 2018-10-19 15:53 | DRG 166 ==
LOC: ER 14:10 → TELE1 16:06
PROVIDERS: ADMIT Internal Medicine Nephrology; ATTEND Internal Medicine
PROC: 0JB70ZZ Excision of Back Subcutaneous Tissue and Fascia, Open Approach (ICD-10-PCS; 2018-10-10)
PROC: 5A1D70Z Performance of Urinary Filtration, Intermittent, Less than 6 Hours Per Day (ICD-10-PCS; 2018-10-11)
PROC: 5A1955Z Respiratory Ventilation, Greater than 96 Consecutive Hours (ICD-10-PCS; principal; 2018-10-12)
PROC: 5A1D70Z Performance of Urinary Filtration, Intermittent, Less than 6 Hours Per Day (ICD-10-PCS; 2018-10-12)
PROC: 5A1D70Z Performance of Urinary Filtration, Intermittent, Less than 6 Hours Per Day (ICD-10-PCS; 2018-10-14)
PROC: 5A1D70Z Performance of Urinary Filtration, Intermittent, Less than 6 Hours Per Day (ICD-10-PCS; 2018-10-16)
PROC: 5A1D70Z Performance of Urinary Filtration, Intermittent, Less than 6 Hours Per Day (ICD-10-PCS; 2018-10-18)
DX: J15.9 Unspecified bacterial pneumonia (principal); N18.6 End stage renal disease; L89.153 Pressure ulcer of sacral region, stage 3; R53.2 Functional quadriplegia; N39.0 Urinary tract infection, site not specified; E87.1 Hypo-osmolality and hyponatremia; J96.10 Chronic respiratory failure, unspecified whether with hypoxia or hypercapnia; I12.0 Hypertensive chronic kidney disease with stage 5 chronic kidney disease or end stage renal disease; J98.11 Atelectasis; Z99.11 Dependence on respirator [ventilator] status; Z99.2 Dependence on renal dialysis; Z93.1 Gastrostomy status; E87.6 Hypokalemia; E78.5 Hyperlipidemia, unspecified; L30.4 Erythema intertrigo; Z79.4 Long term (current) use of insulin; Z93.0 Tracheostomy status; L89.620 Pressure ulcer of left heel, unstageable; L89.610 Pressure ulcer of right heel, unstageable; Z90.49 Acquired absence of other specified parts of digestive tract; L98.8 Other specified disorders of the skin and subcutaneous tissue; E27.8 Other specified disorders of adrenal gland; E11.22 Type 2 diabetes mellitus with diabetic chronic kidney disease; E11.65 Type 2 diabetes mellitus with hyperglycemia
CPT/HCPCS: 31720; 36415; 36600; 71045-TC; 80048-TC; 80053-TC; 80076-TC; 80202-TC; 81000-TC; 82803-TC; 82962-TC; 83690-TC; 83735-TC; 83880; 84100-TC; 84484-TC; 85025-TC; 85730-TC; 86705; 86706; 86709; 86709-TC; 86803; 87040-TC; 87070-TC; 87081-TC; 87086-TC; 87340; 90935-TC; 94002-TC; 94003-TC; 94640-TC; 94760-TC; 94762-TC; 94799-TC; A4216; A6248; A6402; A6403; G0378; J0885; J1170; J1644; J1815; J2185; J2405; J2543; J3370; J3480; J3490; J7030; J7050; J7060; J8597; Q0162

== ENCOUNTER → 2018-11-23 | Emergency (ER) | payer MEDICARE, MEDICAID ==
[~2018-11-23] VITALS: Ht 162.6 cm; Wt 122.0 kg
[~2018-11-23] MED LIST changes: +ALBU2.5V13 NEB; +ASCO500C18 GT; +ASPI-605 GT; +ATOR40TA GT; +DARB60DI SQ; +FOLI0.8T23 PO; +HYDR-3972 GT; +INSU100C4 SQ; +INSU100V10 SQ; +LACT1CAP61 PO; +LEVA0.6320 NEB; +MAGN400O6 GT; +MECL12.582 GT; +MERO500V IV; +METO-295 PO; +MIDO10TA GT; +NA P133E RC; +ONDA4TAB5 GT; +PANT40TA4 GT; +PROT946L GT; +RXVAN XX; +TYL2T GT; +VANC500F2 IV; -[UNRECOGNIZED DRUG - OTHER] SQ SCH
[2018-11-23 12:45] VITALS: BP 130/67
--- NOTE | 2018-11-23 14:00 | NUR ---
G-TUBE REPLACED BY DR. VANESSA, INSERTED [id number].
--- NOTE | 2018-11-23 14:09 | NUR ---
REPORT GIVEN TO AMBULANCE.
--- NOTE | 2018-11-23 14:21 | NUR ---
Patient discharged to [facility] in stable condition. Written and verbal after care instructions given. Patient verbalizes understanding of instruction.
== END | disposition home or self-care (01) ==
LOC: ER 12:45
DX: K94.23 Gastrostomy malfunction (principal); E66.9 Obesity, unspecified; I10 Essential (primary) hypertension; E78.5 Hyperlipidemia, unspecified; F32.9 Major depressive disorder, single episode, unspecified; E11.22 Type 2 diabetes mellitus with diabetic chronic kidney disease; I12.0 Hypertensive chronic kidney disease with stage 5 chronic kidney disease or end stage renal disease; N18.6 End stage renal disease; Z88.5 Allergy status to narcotic agent; Z79.4 Long term (current) use of insulin; Z79.82 Long term (current) use of aspirin